=== PATIENT | female | born 2000 | race African-American/Black ===

== ENCOUNTER 2020-10-05 16:14 | Emergency (ER) | payer OTHER, SELFPAY ==
--- NOTE | ~2020-10-05 | XR_ITS ---
EXAMINATION: XR chest 2V 10/05/2020 16:47 INDICATION: Wheezing. Productive cough. Asthma. PROCEDURE: 2 view chest COMPARISON: No prior studies for comparison. FINDINGS: The lungs are clear. The cardiomediastinal silhouette is within normal limits. There are no pleural effusions. There is no pneumothorax suspected. IMPRESSION: 1: NO ACUTE CARDIOPULMONARY DISEASE. Reviewed, dictated and finalized at location A.
[2020-10-05 16:20] VITALS: BP 148/83; PULSE 88; RESP 20; TEMP 36.6; O2SAT 100
--- NOTE | 2020-10-05 16:32 | ED.URI ---
HPI - URI/Sore Throat General Chief Complaint: Upper Respiratory Infection Stated Complaint: upper respiratory congestion and cough Time Seen by Provider: 10/05/20 16:35 Source: patient and RN notes reviewed Mode of arrival: ambulatory Limitations: no limitations History of Present Illness HPI Narrative: 20-year-old female presents to the [facility] with complaints of cough, congestion. Has a history of asthma. States at home she was wheezing and used her albuterol and treatment. Related Data Home Medications Medication Instructions Recorded Confirmed albuterol sulfate 2 puff INHALATION QID PRN 10/05/20 10/05/20 albuterol sulfate 2.5 mg INHALATION Q4H PRN 10/05/20 10/05/20 cetirizine [Zyrtec] 10 mg PO DAILY 10/05/20 10/05/20 Allergies Allergy/AdvReac Type Severity Reaction Status Date / Time No Known Allergies Allergy Unverified 10/05/20 17:02 Review of Systems Review of Systems: Narrative: CONSTITUTIONAL: Denies fever, chills, or sweats. EYES: Denies visual changes, redness, or discharge. ENT: Reports rhinorrhea, congestion, sore throat, or otalgia. CARDIOVASCULAR: Denies chest pain, palpitations, or edema. RESPIRATORY: Reports productive cough with intermittent dyspnea. GASTROINTESTINAL: Denies abdominal pain, nausea, vomiting, or diarrhea. MUSCULOSKELETAL: Denies back pain, joint pain, or myalgia. NEUROLOGIC: Denies headache, numbness, or weakness. PSYCHIATRIC: Denies anxiety or depression. All other systems reviewed are negative, except as documented in HPI. [facility] Past Medical History Medical History (Updated 10/05/20 @ 19:51 by Jeanine Chin) Asthma Comments At the time of my signature, I reviewed and agree with the nursing past medical, surgical, social, and family history. There is no relevant family history pertinent to the patient complaint. Exam Narrative: Exam Narrative: GENERAL: This is a well-nourished, well-developed patient, in no apparent distress. HEAD: normocephalic, atraumatic. EYES: PERRL. Sclera clear/white. Vision is grossly intact. EARS: External ears normal, auditory canals clear and without drainage, TMs normal without perforation. Hearing grossly intact. Scarring on the right ear TM noted NOSE: External nose normal with thick clear nasal discharge, nares without redness or injection. THROAT: Mucous membranes moist, posterior pharynx clear. NECK: Neck supple, non-tender without lymphadenopathy, masses or thyromegaly. CARDIOVASCULAR: Regular rate and rhythm without murmurs, gallops, or rubs. RESPIRATORY: Clear but diminished to auscultation bilaterally. Breath sounds equal bilaterally. No wheezes, rales, or rhonchi. GASTROINTESTINAL: Abdomen soft, non-tender, nondistended. SKIN: warm, Dry, intact with no suspicious lesions or rash, good texture and turgor. NEURO: awake, alert, and oriented to person, place and time. There were no obvious focal neurologic abnormalities. EXTREMITIES: No joint tenderness, effusion, or edema noted. BACK: Nontender without deformity. Course Course Emergency Course: 1720 Discussed test results with patient, states that she feels much better after the breathing treatment. Lungs clear to auscultation Vital Signs Vital signs: Vital Signs Temperature 97.8 F 10/05/20 16:20 Pulse Rate 88 10/05/20 16:20 Respiratory Rate 20 10/05/20 16:20 Blood Pressure 148/83 H 10/05/20 16:20 Pulse Oximetry 100 10/05/20 16:20 Temperature 97.8 F 10/05/20 16:20 Pulse Rate 88 10/05/20 16:20 Respiratory Rate 20 10/05/20 16:20 Blood Pressure 148/83 H 10/05/20 16:20 Pulse Oximetry 100 10/05/20 16:20 Reviewed MDM - URI/Sore Throat MDM Narrative Medical decision making narrative: Discharge instructions reviewed with patient, as well as provided in writing per nursing staff. The instructions also include specific and strict return/GO TO THE ER as well as f/u information. All questions have been answered, and the patient deny any further que
== END 2020-10-05 17:35 | disposition home or self-care (01) ==
PROVIDERS: Emergency Provider Nurse Practitioner
DX: J06.9 Acute upper respiratory infection, unspecified (principal); J45.909 Unspecified asthma, uncomplicated
CPT/HCPCS: 71046; 87081; 87426; 87804; 87880; 99213; C9803; G0463